=== PATIENT | male | born 1960 | race Caucasian/White ===

== ENCOUNTER 2016-09-06 13:53 | Emergency (ER) | payer OTHER ==
[~2016-09-06] VITALS: Ht 177.8 cm; Wt 76.1 kg
[~2016-09-06 13:53] MED LIST: CIPR500T4 PO; TAMS0.4C67 PO; VIAG100T PO
[2016-09-06 13:57] VITALS: BP 103/62; PULSE 73; RESP 20; TEMP 98.1; O2SAT 96
--- NOTE | 2016-09-06 14:22 | PD ---
HPI Chief Complaint: Chest Pain Time Seen by Provider: 14:02 Travel History International Travel<30 days: No Contact w/Intl Traveler<30days: No Traveled to known affect area: No History of Present Illness HPI So 55-year-old man who presents to the emergency department complaining of feeling poorly with chest pain muscle cramps and headaches. Symptoms been ongoing for the past couple weeks. More worse over past couple days. Endorses some other symptoms going recent weight loss, increased fatigue, and the under more stress. He attributes this to not eating well recently due to financial restraints. He states that the headaches been going on for the past week or so but has: Days is been worse. States he feels like the pain is behind his eyes, pressure-like, somewhat constant now. He also complains of chest pain, ongoing over the past couple weeks, worse over the past several days. Fairly constant at this point. She describes a dull pain in his sternum. Is a little worse with activity. He otherwise has been feeling generally well. History Past Medical History Narrative Medical BPH Social History Alcohol Use: No Tobacco Use: Yes (1PPD) Allergies-Medications (Allergen,Severity, Reaction): Coded Allergies: No Known Allergies (Verified , 09/06/16) Reported Meds & Prescriptions Reported Meds & Active Scripts Active No Active Prescriptions or Reported Medications Review of Systems Except as stated in HPI: all other systems reviewed are Neg Physical Exam Narrative GENERAL: Well-appearing 55-year-old man, no acute distress. SKIN: Focused skin assessment warm/dry. HEAD: Atraumatic. Normocephalic. EYES: Pupils equal and round. No scleral icterus. No injection or drainage. ENT: No nasal bleeding or discharge. Mucous membranes pink and moist. NECK: Trachea midline. No JVD. CARDIOVASCULAR: Regular rate and rhythm. No murmur appreciated. RESPIRATORY: No accessory muscle use. Clear to auscultation. Breath sounds equal bilaterally. GASTROINTESTINAL: Abdomen soft, non-tender, nondistended. Hepatic and splenic margins not palpable. MUSCULOSKELETAL: No obvious deformities. No clubbing. No cyanosis. No edema. NEUROLOGICAL: Awake and alert. No obvious cranial nerve deficits. Motor grossly within normal limits. Normal speech. PSYCHIATRIC: Appropriate mood and affect; insight and judgment normal. Data Data Last Documented VS Vital Signs Date Time Temp Pulse Resp B/P Pulse Ox O2 Delivery O2 Flow Rate FiO2 4/26/17 14:37 56 18 109/52 98 09/06/16 13:57 98.1 Orders Electrocardiogram (09/06/16 14:20) Ckmb (Isoenzyme) Profile (09/06/16 14:20) Complete Blood Count With Diff (09/06/16 14:20) Comprehensive Metabolic Panel (09/06/16 14:20) Magnesium (Mg) (09/06/16 14:20) Prothrombin Time / Inr (Pt) (09/06/16 14:20) Act Partial Throm Time (Ptt) (09/06/16 14:20) Troponin I (09/06/16 14:20) Chest, Single Ap (09/06/16 14:20) Ecg Monitoring (09/06/16 14:20) Iv Access Insert/Monitor (09/06/16 14:20) Oximetry (09/06/16 14:20) Oxygen Administration (09/06/16 14:20) Sodium Chloride 0.9% Flush (Ns Flush) (09/06/16 14:30) Sodium Chlorid 0.9% 500 Ml Inj (Ns 500 M (09/06/16 14:30) CKMB (09/06/16 14:25) CKMB% (09/06/16 14:25) Labs Laboratory Tests Test 09/06/16 14:25 White Blood Count 7.0 TH/MM3 Red Blood Count 4.63 MIL/MM3 Hemoglobin 14.1 GM/DL Hematocrit 42.2 % Mean Corpuscular Volume 91.3 FL Mean Corpuscular Hemoglobin 30.5 PG Mean Corpuscular Hemoglobin 33.4 % Concent Red Cell Distribution Width 13.3 % Platelet Count 169 TH/MM3 Mean Platelet Volume 10.8 FL Neutrophils (%) (Auto) 56.4 % Lymphocytes (%) (Auto) 34.3 % Monocytes (%) (Auto) 5.9 % Eosinophils (%) (Auto) 2.7 % Basophils (%) (Auto) 0.7 % Neutrophils # (Auto) 4.0 TH/MM3 Lymphocytes # (Auto) 2.4 TH/MM3 Monocytes # (Auto) 0.4 TH/MM3 Eosinophils # (Auto) 0.2 TH/MM3 Basophils # (Auto) 0.0 TH/MM3 CBC Comment DIFF FINAL Differential Comment Prothrombin Time 10.9 SEC Prothromb Time International 1.0 RATIO Ratio Activated Partial 29.2 SEC Thromboplast Time Sodium Level 142 MEQ/L Potassium Level 4.0 MEQ/L Chloride Level 106 MEQ/L Carbon Dioxide Level 27.5 MEQ/L Anion Gap 9 MEQ/L Blood Urea Nitrogen 21 MG/DL Creatinine 0.90 MG/DL Estimat Glomerular Filtration 87 ML/MIN Rate Random Glucose 123 MG/DL Calcium Level 8.6 MG/DL Magnesium Level 2.1 MG/DL Total Bilirubin 0.4 MG/DL Aspartate Amino Transf 31 U/L (AST/SGOT) Alanine Aminotransferase 32 U/L (ALT/SGPT) Alkaline Phosphatase 87 U/L Total Creatine Kinase 855 U/L Creatine Kinase MB 3.3 NG/ML Creatine Kinase MB % 0.4 % Troponin I LESS THAN 0.02 NG/ML Total Protein 6.9 GM/DL Albumin 3.6 GM/DL MDM Medical Decision Making Medical Screen Exam Complete: Yes Emergency Medical Condition: Yes Interpretation(s) My review of EKG: Normal sinus rhythm at a rate of 67, normal axis, normal intervals, no ischemia. LABS: CBC unremarkable. CMP Troponin Coags Chest x-ray: No acute cardio pulmonary disease. Differential Diagnosis Electrolyte abnormality, rhabdomyolysis, chest pain, ACS, other Narrative Course Medical decision making INITIAL: Well-appearing 55 year-old man presents with chest pain headache muscle cramps. He looks generally well. History is only moderately suspicious for ACS. No other medical problems. Looks well. EKG is unremarkable. We'll check labs, chest x-ray, reassess. FINAL: Initial workups unremarkable. Etiology is unclear. Multiple symptoms quitting headaches and muscle aches seem to make heart disease last likely. Heart score is estimated at 3 points, low risk based on a moderately suspicious history, age of 55, and 2 risk factors including family history and smoking. I discussed this with the patient, including the risk of major adverse cardiac events in the next 6 weeks of one to 2%. Recommend close follow-up with the patient's primary physician or return to the emergency department for any worsening symptoms. He is agreeable. He thinks his symptoms may be related to malfunctioning piece of scuba gear that he uses for work. Diagnosis Primary Impression: Chest pain Additional Impression: Headache Additional Instructions: Follow-up with your primary doctor in the next one to 2 weeks. Return to the emergency department for any new or worsening symptoms. Med/Other Pt SpecificInfo: No Change to Meds Scripts No Active Prescriptions or Reported Meds Disposition: 01 DISCHARGE HOME Condition: Stable Clifton Medina MD Sep 06, 2016 14:22
[2016-09-06] MEDS ORDERED: SODIUM CHLORIDE 0.9% FLUSH 10 ML FLUSH IVF PRN (14:30)
[2016-09-06] MEDS ORDERED: SODIUM CHLORID 0.9% 500 ML INJ 500 ML IV ONE (14:30)
[2016-09-06 14:32] VITALS: O2SAT 95
[2016-09-06 14:34] LABS: BASOPHIL % 0.7 % (0.0-2.0); EOSINOPHIL # 0.2 TH/MM3 (0-0.4); EOSINOPHIL % 2.7 % (0.0-4.0); HEMATOCRIT 42.2 % (39.0-51.0); HEMO FLAGS DIFF FINAL; LYMPH % 34.3 % (9.0-44.0); LYMPHOCYTE # 2.4 TH/MM3 (1.0-4.8); MEAN CELL VOLUME 91.3 FL (80.0-100.0); MEAN CORPUSCULAR HEMOGLOBIN 30.5 PG (27.0-34.0); MEAN CORPUSCULAR HGB CONC 33.4 % (32.0-36.0); MONO % 5.9 % (0.0-8.0); NEUT % 56.4 % (16.0-70.0); PLATELET COUNT 169 TH/MM3 (150-450); RED BLOOD COUNT 4.63 MIL/MM3 (4.50-5.90); RED CELL DISTRIBUTION WIDTH 13.3 % (11.6-17.2)
[2016-09-06 14:37] VITALS: BP 109/52; PULSE 56; RESP 18; O2SAT 98
--- NOTE | 2016-09-06 14:37 | RADHPO ---
EXAM DATE/TIME: 09/06/2016 14:25 [facility] COMPARISON: CHEST PA & LAT, May 18, 2015, 12:50. INDICATIONS : Chest pain for 4 days. MEDICAL HISTORY : None. SURGICAL HISTORY : None. ENCOUNTER: Initial ACUITY: 4 - 6 days PAIN SCORE: 3/10 LOCATION: Bilateral chest FINDINGS: The lungs are clear without infiltrate, nodule, or mass. There is no appreciable pleural effusion fo r technique. Heart and mediastinum are unremarkable. CONCLUSION: No acute cardiopulmonary disease. Joey Cool MD on September 06, 2016 at 14:35 Board Certified Radiologist. This report was verified electronically.
[2016-09-06 14:43] LABS: CHLORIDE 106 MEQ/L (98-107); SODIUM (NA) 142 MEQ/L (136-145)
[2016-09-06 14:47] LABS: ANION GAP 9 MEQ/L (5-15); APTT (PATIENT) 29.2 SEC (24.3-30.1); BICARBONATE 27.5 MEQ/L (21.0-32.0); MAGNESIUM 2.1 MG/DL (1.5-2.5); PROTHROMBIN TIME - PATIENT 10.9 SEC (9.8-11.6)
[2016-09-06 14:48] LABS: BLOOD UREA NITROGEN 21 MG/DL (7-18)
[2016-09-06 14:50] LABS: ALT (GPT) 32 U/L (12-78); AST (GOT) 31 U/L (15-37)
[2016-09-06 14:51] LABS: GLOMERULAR FILTRATION RATE 87 ML/MIN (>89)
[2016-09-06 14:52] LABS: TOTAL BILIRUBIN ADULT 0.4 MG/DL (0.2-1.0)
[2016-09-06 14:53] LABS: ALKALINE PHOSPHATASE 87 U/L (45-117); CREATINE KINASE 855 U/L (39-308)
[2016-09-06 15:06] LABS: CKMB 3.3 NG/ML (0.5-3.6)
[2016-09-06 15:34] VITALS: BP 136/78
--- NOTE | 2016-09-07 13:58 | EKG ---
Date Performed: 09/06/2016 Time Performed: 14:00:26 PTAGE: 55 years EKG: Sinus rhythm . Poor R wave progression - probable normal variant Borderline ECG Compared to prior tracing no signi ficant change PREVIOUS TRACING : 05/18/2015 11.58 DOCTOR: Juventino Sow Interpretating Date/Time 09/07/2016 13:56:21
== END 2016-09-06 15:36 | disposition home or self-care (01) ==
LOC: PHED 13:53
DX: R07.9 Chest pain, unspecified (principal); R51 Headache; R25.2 Cramp and spasm; R63.4 Abnormal weight loss; R53.83 Other fatigue; R94.31 Abnormal electrocardiogram [ECG] [EKG]; F17.200 Nicotine dependence, unspecified, uncomplicated; Z87.438 Personal history of other diseases of male genital organs
CPT/HCPCS: 71010; 80053; 82550; 82552; 83735; 84484; 85025; 85610; 85730; 93005; 96360; 99285; J7040